=== PATIENT | female | born 1995 | race Hispanic/Latino ===

== ENCOUNTER 2021-04-10 21:15 | Emergency (ER) | payer SELFPAY ==
[~2021-04-10] VITALS: Ht 157.5 cm; Wt 68.0 kg
[2021-04-10] MEDS ORDERED: POTASSIUM CHLORIDE 20 MEQ TAB CR PO ONE ×2 (23:00)
[2021-04-10 23:45] VITALS: BP 112/65
== END 2021-04-10 23:46 | disposition home or self-care (01) ==
LOC: FSED 22:04
DX: R20.2 Paresthesia of skin (principal); E87.6 Hypokalemia; F41.9 Anxiety disorder, unspecified
CPT/HCPCS: 70450; 80048; 81003; 81025; 85025; 99284